=== PATIENT | female | born 1995 | race Caucasian/White ===

== ENCOUNTER 2021-03-06 14:48 | Outpatient (CLI) | payer SELFPAY ==
--- NOTE | 2021-03-06 15:10 | MR_ITS ---
WS: [id number] MRI RIGHT KNEE HISTORY: CHRONIC INSTABILITY OF KNEE, RIGHT KNEE COMPARISON: None available. Anterior cruciate ligament: Complete tear of the ACL. ACL is lying along the tibial plateau. Posterior cruciate ligament: Intact. Medial collateral ligament: Intact. Posterior lateral corner structures: Intact. Medial menisci: Abnormal signal in the posterior horn. On the inferior articular surface there is men iscal fraying and probably a complex tear extending towards the meniscal root. Anterior horn is jorge alberto l. Lateral meniscus: Intact. Normal signal, size and shape. Extensor mechanism: Distal quadriceps tendon and patellar tendons are intact. Fluid and soft tissue: Small suprapatellar effusion. There is additional fluid extending posterior to the condyles. No Frederick's cyst. Osseous and articular structures: Patellofemoral compartment: Slight lateral subluxation of the patella. No cartilage tear or injury. N o marrow edema. Medial compartment: Mild narrowing of the medial compartment. There is a very small amount of marrow edema involving the medial tibial plateau towards the intercondylar notch. This is also at the site o f the meniscal injury. No fracture. There is thinning and fraying along the weightbearing surface of the cartilage of the medial compartment. Lateral compartment: Normal. MR/MR knee RT wo con* [id number] IMPRESSION: 1. Complete tear ACL. 2. Minimally complex tear posterior horn medial meniscus with extension toward s the meniscal root. At the site of the meniscal tear there is a small amount o f marrow edema in the medial tibial plateau and fissuring of the cartilage.
== END 2021-03-06 14:49 | disposition home or self-care (01) ==
PROVIDERS: Visit Provider Student in an Organized Health Care Education/Training Program
DX: M23.51 Chronic instability of knee, right knee (principal); S83.511A Sprain of anterior cruciate ligament of right knee, initial encounter; X58.XXXA Exposure to other specified factors, initial encounter
CPT/HCPCS: 73721